=== PATIENT | female | born 1960 | race Caucasian/White ===

== ENCOUNTER → 2017-06-26 | Outpatient (CLI) | payer OTHER ==
--- NOTE | 2017-06-27 08:46 | RADIOLOGY REPORT (SQ) ---
EXAM DESCRIPTION: MRI LT LOWER JOINT WITHOUT COMPLETED DATE/TIME: 06/26/2017 6:02 pm REASON FOR STUDY: SPRAIN OF ANTERIOR CRUCIATE LIGAMENT OF LEFT KNEE, INITIAL ENCOUNTER S83.512A SPR AIN OF ANTERIOR CRUCIATE LIGAMENT OF LEFT KNEE, COMPARISON: Radiographs from recently. TECHNIQUE: Leftknee images acquired and stored on PACS. Multiplanar images include fat sensitive se quences as T1, water sensitive sequences as FST2 or STIR, cartilage sensitive sequences as FSPD, and gradient echo sequences. LIMITATIONS: None. FINDINGS: JOINT AND BURSAE: Moderate joint effusion. No loose bodies. BONE CORTEX AND MARROW: Contusion in the posterior aspect of the lateral tibial plateau, slight impac tion fracture postero laterally. ACL: Completely disrupted proximally. PCL: Intact. MCL: No intact proximal fibers, ill-defined with extensive regional edema. LCL: Intact. MEDIAL MENISCUS: Suspect some contusion throughout the posterior horn. There may be a component of h orizontal tear. No extrusion, however. LATERAL MENISCUS: Contusion versus degenerative signal, doubt tear. MEDIAL COMPARTMENT: Cartilage preserved. No bone bruises or reactive marrow edema. No osteophytes. LATERAL COMPARTMENT: Chondral loss and subchondral cysts along the anterior femoral condyle tracking into the trochlea. PATELLA: Diffuse chondral thinning. Particularly in the medial facet. Some of this looks full-thick ness to near full-thickness. EXTENSOR MECHANISM: Generally intact quadriceps and patellar tendons. SOFT TISSUES: Extensive superficial and deep soft tissue edema about the knee. No drainable collecti ons. Appropriate vascular flow voids. OTHER: No other significant finding. IMPRESSION: 1. Complete tear proximal ACL. Associated joint effusion. Associated contusion and mi nimal fracture in the posterior aspect of the lateral tibia. 2. Complete disruption medial collater al ligament. 3. Meniscus changes as above, likely contusion or degenerative change. 4. PCL intact . Lateral collateral ligament complex intact. Chondral changes as above. TECHNICAL DOCUMENTATION: JOB ID: [id number] [employer]- All Rights Reserved
== END ==
LOC: RAD 16:58
PROVIDERS: ATTEND Family Medicine
DX: S83.512A Sprain of anterior cruciate ligament of left knee, initial encounter (principal); X58.XXXA Exposure to other specified factors, initial encounter